=== PATIENT | female | born 1945 | race Caucasian/White ===

== ENCOUNTER → 2016-08-31 | Outpatient (REF) ==
[~2016-08-31] MED LIST: AMITRIPTYLINE H75 M1 PO; ASPIRIN E.C. 8181 MG PO; ATIVAN 1MG T1 MG/TAB PO; CALCIUM 600600 M1 PO; CELEBREX 200MG200 MG PO; COUMADIN 3MG3 MG/TAB PO; HCTZ 25MG TAB25 MG PO; MOBIC15 MG PO; MULTIVITAMIN FO1 CAP PO; NEURONTIN600 MG/TAB PO; NORCO 325 MG-7.1 TAB PO; PROZAC 20MG20 MG PO; TENORMIN 5050 MG/TAB PO; TOPAMAX 100MG100 M1 PO; TOPAMAX50 MG PO; ULTRAM ER100 MG PO; ZOCOR 40MG40 MG PO
[2016-08-31 16:05] LABS: THYROID STIMULATING HORMONE 0.168 uIU/mL (0.465-4.680)
== END ==
LOC: ZLAB.WCH 15:05
PROVIDERS: Internal Medicine
DX: Z01.89 Encounter for other specified special examinations (principal)

== ENCOUNTER → 2016-12-30 | Outpatient (REF) | LOC: ZLAB.WCH 18:08 | DX: Z01.89 Encounter for other specified special examinations (principal) ==

== ENCOUNTER → 2017-04-02 | Outpatient (REF) | LOC: ZLAB.WCH 20:48 | DX: Z01.89 Encounter for other specified special examinations (principal) ==

== ENCOUNTER → 2017-09-10 | Outpatient (REF) ==
[2017-09-10 16:34] LABS: THYROID STIMULATING HORMONE 0.328 uIU/mL (0.465-4.680)
== END ==
LOC: ZLAB.WCH 15:37
PROVIDERS: Internal Medicine
DX: Z01.89 Encounter for other specified special examinations (principal)

== ENCOUNTER → 2017-10-15 | Outpatient (CLI) | payer MEDICARE, BC | LOC: COL.PUL 12:38 | DX: R06.09 Other forms of dyspnea (principal) ==

== ENCOUNTER → 2017-12-10 | Outpatient (REF) | LOC: ZLAB.WCH 08:40 | DX: Z01.89 Encounter for other specified special examinations (principal) ==

== ENCOUNTER → 2018-04-05 | Outpatient (REF) | LOC: ZLAB.WCH 18:04 | DX: Z01.89 Encounter for other specified special examinations (principal) ==

== ENCOUNTER → 2018-08-05 | Outpatient (REF) | LOC: ZLAB.WCH 14:54 | DX: Z01.89 Encounter for other specified special examinations (principal) ==

== ENCOUNTER → 2018-09-05 | Outpatient (REF) | LOC: ZLAB.WCH 18:22 | DX: Z01.89 Encounter for other specified special examinations (principal) ==

== ENCOUNTER → 2018-09-16 | Outpatient (REF) | LOC: ZLAB.WCH 17:33 | DX: Z01.89 Encounter for other specified special examinations (principal) ==

== ENCOUNTER 2021-08-29 12:59 | Day surgery (SDC) | payer MEDICARE, BC ==
[~2021-08-29] VITALS: Ht 157.5 cm; Wt 74.2 kg
[2021-08-29 13:55] VITALS: BP 134/64; PULSE 70; TEMP 97.4
[2021-08-29] MEDS ORDERED: PROVIGIL200 MG PO (14:10)
[2021-08-29] MEDS ORDERED: XARELTO20 MG PO (14:11)
[2021-08-29] MEDS ORDERED: KEPPRA 500MG500 MG PO (14:13)
[2021-08-29] MEDS ORDERED: FOSAMAX 70MG TA70 MG PO (14:14)
[2021-08-29] MEDS ORDERED: SYNTHROID0.075 MG/T PO (14:15)
[2021-08-29] MEDS ORDERED: LIPITOR 40MG TA40 MG PO (14:16)
[2021-08-29] MEDS ORDERED: XYZAL5 MG PO (14:17)
[2021-08-29 16:10] VITALS: BP 107/50; PULSE 61; TEMP 97.4
--- NOTE | 2021-08-29 16:10 | NUR ---
Pt arrived from PACU escorted by MICHAEL Kim via cart. Pt is drowsy but oriented. Denies pain and nausea. O2 at 2L via nasal cannula continues. Vitals obtained. Daughter is present. Pt is tolerating a warm muffin and OJ well. Call del real is within reach on her lap. Pt verbalized understanding how to use call del real.
--- NOTE | 2021-08-29 16:20 | NUR ---
O2 titrated down to 1L via nasal cannula
--- NOTE | 2021-08-29 16:25 | NUR ---
Pt finished her muffin and continues to deny nausea. Vitals obtained. Call del real remains within reach. Daughter at bedside.
--- NOTE | 2021-08-29 16:35 | NUR ---
O2 discontinued. O2 remains above 95%. Pt is currently at 99% on room air.
--- NOTE | 2021-08-29 16:40 | NUR ---
Vitals obtained. Pt assisted to bedside, where she sat for a few minutes before ambulating to bathroom via walker and was able to void. Then back to bedside. IV discontinued. Catheter tip intact. Pressure bandage applied. NO redness or swelling. DC instructions and educational material reviewed with pt and daughter. Daughter asked if it was okay to give Motrin for pain. RN recommened Tylenol, because Motrin is an NSAID. Pt and daughter verbalized understanding. Pt denied needing assistance changing. Call del real remains within reach. Supplies given: pilgram hat, pack of soft clothes, two packs of 2x2's, sterile cup, urine strainer.
--- NOTE | 2021-08-29 17:18 | NUR ---
Pt dismissed from [facility] via wheelchair by MICHAEL Santos w/ daughter present. Daughter has supplies, DC packet and patient personal belongings in white pt belongings bag. Pt was transferred into the care of her daughter, who is present to drive.
[2021-08-29 17:41] VITALS: BP 107/50; PULSE 60
== END 2021-08-29 17:20 | disposition home or self-care (01) ==
LOC: SDCO 12:59
DX: N20.0 Calculus of kidney (principal); R31.0 Gross hematuria; R39.15 Urgency of urination; N39.0 Urinary tract infection, site not specified; E66.9 Obesity, unspecified
CPT/HCPCS: C1769; C2617; J0690; J1100; J2405; J2704; J3010; J7120; Q9967

== ENCOUNTER → 2022-08-04 | Outpatient (CLI) | payer MEDICARE, BC ==
[~2022-08-04] MED LIST changes: +FOSAMAX 70MG TA70 MG PO; +KEPPRA 500MG500 MG PO; +LIPITOR 40MG TA40 MG PO; +PROVIGIL200 MG PO; +SYNTHROID0.075 MG/T PO; +XARELTO20 MG PO; +XYZAL5 MG PO
== END ==
LOC: COL.RAD 07-14 07:30
DX: G30.1 Alzheimer's disease with late onset (principal); G40.909 Epilepsy, unspecified, not intractable, without status epilepticus